=== PATIENT | female | born 1980 | race Hispanic/Latino ===

== ENCOUNTER 2020-10-25 08:15 | Emergency (ER) | payer OTHER ==
--- NOTE | 2020-10-25 08:35 | EDPHYS ---
Physician Documentation [facility] Name: Amy Boss Age: 40 yrs Sex: Female : 1980 Arrival Date: 10/25/2020 Time: 08:17 Bed 18 Private MD: Puma Corral H ED Physician Shaggy Nelson HPI: 10/25 08:30 This 40 yrs old Female presents to ER via Ambulatory with complaints of Insect rn Bite. 08:30 the patient presents with a swollen area of the left leg. Description: erythematous, rn swollen, tense. Onset: The symptoms/episode began/occurred 3 day(s) ago. Possible cause(s): unknown. Associated signs and symptoms: Pertinent positives: erythema, swelling, Pertinent negatives: fever. Modifying factors: the symptoms are alleviated by nothing, the symptoms are aggravated by touching. Severity of symptoms: At their worst the symptoms were mild, in the emergency department the symptoms are unchanged. The patient has not experienced similar symptoms in the past. Reports popped and drained small amount of white pus 2 days ago.. 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 - Family history:: not pertinent. - Social history:: Smoking status: unknown. - Hospitalizations: : No recent hospitalization is reported. ROS: 08:30 Constitutional: Negative for fever, chills, and weight loss, Skin: + redness and rn swelling left inner thigh Exam: 08:30 Constitutional: This is a well developed, well nourished patient who is awake, alert, rn and in no acute distress. MS/ Extremity: Pulses equal, no cyanosis. Neurovascular intact. + mild erythema and 3cm induration left proximal/inner thigh, no fluctuance. No streaking. Vital Signs: 08:25 BP 122 / 77; Pulse 89; Resp 16 S; Temp 98.0(O); Pulse Ox 99% on R/A; aa5 Procedures: 08:30 Ultrasound: Type: Bedside ultrasound performed by Dr. Nelson, + cobblestoning of rn epidermis, no pocket of fluid or evidence of abscess. , performed by the emergency department physician. MDM: 08:19 Patient medically screened. rn 08:30 Differential diagnosis: abscess, cellulitis, insect bite. Data reviewed: vital signs, rn nurses notes, radiologic studies, ultrasound, and as a result, I will discharge patient. Counseling: I had a detailed discussion with the patient and/or guardian regarding: the historical points, exam findings, and any diagnostic results supporting the discharge/admit diagnosis, radiology results, the need for outpatient follow up, to return to the emergency department if symptoms worsen or persist or if there are any questions or concerns that arise at home. Special discussion: I discussed with the patient/guardian in detail that at this point there is no indication for admission to the hospital. It is understood, however, that if the symptoms persist or worsen the patient needs to return immediately for re-evaluation. Administered Medications: No medications were administered Disposition: 10/25/20 08:34 Discharged to Home. Impression: Cellulitis of left lower limb. - Condition is Stable. - Discharge Instructions: Cellulitis, Adult. - Prescriptions for Clindamycin HCl 300 mg Oral Capsule - take 1 capsule by ORAL route every 6 hours for 10 days; 40 capsule. - Medication Reconciliation Form, Thank You Letter, Antibiotic Education, Prescription Opioid Use, Work release form form. - Follow up: Private Physician; When: As needed; Reason: Recheck today's complaints, Re-evaluation by your physician. - Problem is new. - Symptoms have improved. Signatures: Shaggy Nelson MD MD rn Calderon, Audri RN RN aa5 Eitan Madera RN RN jd3 Corrections: (The following items were deleted from the chart) 08:52 08:34 10/25/2020 08:34 Discharged to Home. Impression: Cellulitis of left lower limb. jd3 Condition is Stable. Forms are Medication Reconciliation Form, Thank You Letter, Antibiotic Education, Prescription Opioid Use. Follow up: Private Physician; When: As needed; Reason: Recheck today's complaints, Re-evaluation by your physician. Problem is new. Symptoms have improved. rn
--- NOTE | 2020-10-25 08:35 | ER ---
Nurse's Notes [facility] Name: Amy Boss Age: 40 yrs Sex: Female : 1980 Arrival Date: 10/25/2020 Time: 08:17 Bed 18 Private MD: Puma Corral H Diagnosis: Cellulitis of left lower limb Presentation: 10/25 08:18 Chief complaint: Patient states: "I thought I got an insect bite on my left thigh a few aa5 days ago and it got a pimple and it busted but now it's all red". 08:18 Coronavirus screen: Client denies travel out of the [place] in the last 14 days. At this aa5 time, the client does not indicate any symptoms associated with coronavirus-19. Ebola Screen: Patient negative for fever greater than or equal to 101.5 degrees Fahrenheit, and additional compatible Ebola Virus Disease symptoms. Risk Assessment: Do you want to hurt yourself or someone else? Patient reports no desire to harm self or others. Onset of symptoms was October 2020. 08:18 Acuity: LLUVIA 4 aa5 08:18 Method Of Arrival: Ambulatory aa5 08:25 Initial Sepsis Screen: Does the patient meet any 2 criteria? No. Patient's initial aa5 sepsis screen is negative. Does the patient have a suspected source of infection? No. Patient's initial sepsis screen is negative. Triage Assessment: 08:51 Bite description: bite sustained to medial aspect of left thigh by an unknown animal, jd3 animal information: vaccination(s) is not applicable. 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 - Family history:: not pertinent. - Social history:: Smoking status: unknown. - Hospitalizations: : No recent hospitalization is reported. Screenin:51 Abuse screen: Denies threats or abuse. Nutritional screening: No deficits noted. jd3 Tuberculosis screening: No symptoms or risk factors identified. Fall Risk Ambulatory Aid- None/Bed Rest/Nurse Assist (0 pts). Gait- Normal/Bed Rest/Wheelchair (0 pts) Mental Status- Oriented to own ability (0 pts). Total Ventura Fall Scale indicates No Risk (0-24 pts). Assessment: 08:49 General: Appears in no apparent distress. comfortable, Behavior is calm, cooperative, jd3 appropriate for age. Pain: Complains of pain in medial aspect of left thigh Quality of pain is described as tender. Neuro: Level of Consciousness is awake, alert, obeys commands, Oriented to person, place, time, situation. Cardiovascular: Denies chest pain, Capillary refill < 3 seconds Patient's skin is warm and dry. Respiratory: Airway is patent Respiratory effort is even, unlabored, Respiratory pattern is regular, symmetrical. GI: No signs and/or symptoms were reported involving the gastrointestinal system. : No signs and/or symptoms were reported regarding the genitourinary system. EENT: No signs and/or symptoms were reported regarding the EENT system. Derm: Skin is intact, Skin is dry, Skin is normal, Skin temperature is warm Wound noted medial aspect of left thigh Wound is dry, red, closed. about the size of a quarter. Musculoskeletal: Circulation, motion, and sensation intact. Range of motion: intact in all extremities. Vital Signs: 08:25 BP 122 / 77; Pulse 89; Resp 16 S; Temp 98.0(O); Pulse Ox 99% on R/A; aa5 ED Course: 08:17 Patient arrived in ED. ag5 08:17 Puma Corral DO is Private Physician. ag5 08:18 Arm band placed on Patient placed in an exam room, on a stretcher. aa5 08:19 Shaggy Nelson MD is Attending Physician. rn 08:23 Triage completed. aa5 08:43 Eitan Madera RN is Primary Nurse. jd3 08:51 No provider procedures requiring assistance completed. Patient did not have IV access jd3 during this emergency room visit. 08:52 Patient has correct armband on for positive identification. Placed in gown. Bed in low jd3 position. Call light in reach. Side rails up X 1. Pulse ox on. NIBP on. Administered Medications: No medications were administered Outcome: 08:34 Discharge ordered by . rn 08:52 Discharged to home ambulatory, with family. jd3 08:52 Condition: stable 08:52 Discharge instructions given to patient, Instructed on discharge instructions, follow up and referral plans. medication usage, Demonstrated understanding of instructions, follow-up care, medications, Prescriptions given X 1. 08:52 Patient left the ED. jd3 Signatures: Shaggy Nelson MD MD rn Calderon, Audri RN RN aa5 Eitan Madera RN RN jd3 Gloria Patel 5
[2020-10-25 08:56] VITALS: BP 122/77; TEMP 98; O2SAT 99
== END 2020-10-25 08:52 | disposition home or self-care (01) ==
LOC: ER 08:15
DX: L03.116 Cellulitis of left lower limb (principal)
CPT/HCPCS: 99283

== ENCOUNTER 2025-01-07 14:53 | Emergency (ER) | payer OTHER ==
[2025-01-07 15:33] LABS: Absolute Eosinophils 0.1 K/uL (0-0.5); Absolute Lymphocytes (CBC) 2.2 K/uL (0.7-4.9); Absolute Monocytes 0.6 K/uL (0.1-1.3); Absolute Neutrophil 4.9 K/uL (1.8-8.0); Basophils % 0.4 % (0-1.3); Eosinophils % 1.4 % (0-4.4); Hematocrit 38.3 % (36.0-45.0); Hemoglobin 12.8 g/dL (12.0-15.0); Lymphocytes % 28.1 % (15.3-44.8); MCH 27.8 pg (27.0-35.0); MCHC 33.4 g/dL (32.0-36.0); MCV 83.2 fL (80-100); Monocytes % 7.5 % (3.3-12.3); Neutrophils % 62.6 % (41.7-73.7); Nucleated Red Blood Cells % 0.1 % (0-0); Platelets 347 thou/uL (152-406); RBC Red Blood Cell Count 4.61 M/uL (3.86-4.86); Red Cell Distribution Width 14.3 % (12.1-15.2)
[2025-01-07 15:35] LABS: Specific Gravity > 1.030 (1.005-1.030); Sqamous Epithelial <5 /HPF (None Seen); Urine Bacteria <20 /HPF (<20); Urine Bilirubin 1+ (Negative); Urine Blood Negative (Negative); Urine Clarity Extremely Turbid (Clear); Urine Color Yellow (Yellow); Urine Crystals Unidentified Few /HPF (None Seen); Urine Culture Reflex Order NOT NEEDED; Urine Glucose NEGATIVE (Negative); Urine Ketones 3+ (Negative); Urine Microscopic Reflex YN ORDER UMIC; Urine Mucus 1+ /HPF (None Seen); Urine Nitrite NEGATIVE (Negative); Urine Protein TRACE (Negative); Urine Urobilinogen 1+ (Normal); Urine WBC <5 /HPF (<5); Urine WBC Clump Rare /HPF (None Seen)
[2025-01-07 15:49] LABS: Albumin 3.4 g/dL (3.4-5.0); Albumin/Globulin Ratio 0.7 (1.1-1.8); Anion Gap 7.3 mEq/L (5.0-15.0); Bilirubin Total 0.4 mg/dL (0.2-1.0); Globulin 4.6 g/dL (2.3-3.5); Potassium 3.3 mEq/L (3.5-5.1)
--- NOTE | 2025-01-07 16:43 | RAD REPORT ---
Pelvis Complete CLINICAL INDICATION: Female 44 years old ABD PAIN TECHNIQUE: Real-time ultrasonography of the pelvis was performed transabdominally. Color and spectral Doppler evaluation of the ovaries was performed. [id number]. The patient refused a transvaginal exam. COMPARISON: No prior exam. FINDINGS: UTERUS AND CERVIX: The uterus measures 7.2 x 3.2 x 4.2 cm (cervix to fundus x AP x transverse). The u terus is normal. No masses seen . Note that the endometrial stripe was not assessed. RIGHT OVARY: Not seen; no right adnexal mass. LEFT OVARY: Not seen; no left adnexal mass. FREE FLUID: No free fluid. IMPRESSION: 1. Limited exam as the patient refused a transvaginal exam. Endometrial stripe not assessed. 2. Neither ovary visualized.
--- NOTE | 2025-01-07 17:11 | RAD REPORT ---
EXAMINATION: Abdomen Pelvis W Contrast CLINICAL INDICATION: Female, 44 years old.lower abd pain TECHNIQUE: CT abdomen and pelvis was performed, after the administration of IV contrast, [facility]. Axial, sagittal and coronal reconstructions were obtained. One or more of the following dose reduction techniques were used: Automated exposure control, adjustment of the mA and/o r kV according to patient size, and/or iterative reconstruction. Unless otherwise specified, incidental findings do not require dedicated imaging follow-up. [id number]. COMPARISON: No prior exam. FINDINGS: LOWER CHEST: No acute process identified.No significant pericardial effusion. Mild circumferential th ickening of the distal esophagus which could reflect esophagitis. UPPER GI: No significant abnormality. LIVER: Hepatic steatosis, but otherwise unremarkable. GALLBLADDER/BILE DUCTS: Cholecystectomy? PANCREAS: No mass, ductal dilation, or regino-pancreatic fluid. SPLEEN: Unremarkable. ADRENALS: No adrenal masses. KIDNEYS AND URETERS: No hydronephrosis.No suspicious renal mass.Nonobstructing renal calculi. ABDOMINAL AORTA AND OTHER VESSELS: Normal caliber aorta and IVC. PERITONEUM: No abnormal free fluid. No free air. LYMPH NODES: No pathologic lymphadenopathy. ABDOMINAL WALL: Small fat containing umbilical hernia. SMALL BOWEL/COLON: Inflammatory changes at the mid sigmoid consistent with nonperforated sigmoid dive rticulosis.Normal appendix. URINARY BLADDER: Underdistended but grossly unremarkable. REPRODUCTIVE ORGANS: No pathologic process. MUSCULOSKELETAL: No acute or suspicious osseous abnormality. ADDITIONAL FINDINGS: None. IMPRESSION: Nonperforated sigmoid diverticulosis. No bowel obstruction.
[2025-01-07] MEDS ORDERED: CIPROFLOXACIN HCL 500 MG TAB ONE (18:53)
[2025-01-07] MEDS ORDERED: metroNIDAZOLE 500 MG TABLET ONE (18:53)
--- NOTE | 2025-01-07 19:03 | EDPHYS ---
Physician Documentation [facility] Name: Amy Boss Age: 44 yrs Sex: Female : 1980 Arrival Date: 01/07/2025 Time: 14:53 Bed 18 Private MD: ED Physician Shaggy Nelson HPI: 01/07 15:12 This 44 yrs old Female presents to ER via Ambulatory with complaints of rn Abdominal Swelling. 15:12 The patient presents with abdominal pain in the lower abdomen. Onset: The rn symptoms/episode began/occurred 5 day(s) ago. The symptoms do not radiate. Associated signs and symptoms: Pertinent negatives: nausea and vomiting, blood in stools, chest pain, constipation, diarrhea, fever, shortness of breath, vaginal discharge, vomiting. The symptoms are described as achy, crampy. Modifying factors: The symptoms are alleviated by nothing, the symptoms are aggravated by nothing. Severity of pain: At its worst the pain was moderate in the emergency department the pain has improved. The patient has not experienced similar symptoms in the past. The patient has been recently seen by a physician:. Patient reports lower abdominal pain for the last 5 days. No fever or chills or vomiting or diarrhea. No blood in stool. Patient seen by PCP and had a negative urinalysis. Still having pain so PCP sent here for further evaluation denies unintentional weight loss. No vaginal discharge. No urinary symptoms.. 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 Flu vaccine is not up to date. - Infectious Disease History:: Denies. - Social history:: Smoking status: Patient denies any tobacco usage or history of. - Family history:: not pertinent. - Hospitalizations: : No recent hospitalization is reported. ROS: 15:12 Constitutional: Negative for fever, chills, and weight loss, Cardiovascular: Negative rn for chest pain, palpitations, and edema, Respiratory: Negative for shortness of breath, cough, wheezing, and pleuritic chest pain, Abdomen/GI: Negative for nausea, vomiting, diarrhea, and constipation, Back: Negative for injury and pain, : Negative for injury, bleeding, discharge, and swelling, MS/Extremity: Negative for injury and deformity, Skin: Negative for injury, rash, and discoloration, Neuro: Negative for headache, weakness, numbness, tingling, and seizure, Exam: 15:12 Constitutional: This is a well developed, well nourished patient who is awake, alert, rn and in no acute distress. Cardiovascular: Regular rate and rhythm. No pulse deficits. Respiratory: No increased work of breathing, no retractions or nasal flaring. Abdomen/GI: Soft mild suprapubic tenderness. No rebound or guarding. No masses MS/ Extremity: Pulses equal, no cyanosis. Neuro: Awake and alert, GCS 15 Vital Signs: 15:06 BP 145 / 86; Pulse 87; Resp 17; Temp 97.7; Pulse Ox 99% on R/A; Weight 81.65 kg; Height ap3 5 ft. 0 in. ; Pain 5/10; 16:38 BP 144 / 89; Pulse 80; Resp 16; Pulse Ox 99% ; bp 18:13 BP 136 / 87; Pulse 96; Resp 16; Pulse Ox 95% ; bp 15:06 Body Mass Index 35.15 (81.65 kg, 152.4 cm) ap3 15:06 Pain Scale: Adult ap3 MDM: 14:58 Medical Screening Exam initiated rn 19:00 Differential diagnosis: appendicitis, diverticulitis, gastritis, gastroesophageal rn reflux disease, non-specific abd pain, Peptic Ulcer Disease, Perf. Duodenal Ulcer, Perf. Gastric Ulcer, Ureterolithiasis, urinary tract infection. Data reviewed: vital signs, nurses notes, lab test result(s), radiologic studies, CT scan, and as a result, I will discharge patient. 19:01 Counseling: I had a detailed discussion with the patient and/or guardian regarding the rn historical points, exam findings, and any diagnostic results supporting the discharge/admit diagnosis, lab results, radiology results, the need for outpatient follow up, to return to the emergency department if symptoms worsen or persist or if there are any questions or concerns that arise at home. Special discussion: Based on the patient's Hx, exam, and Dx evaluation, there is no indication for emergent surgery or inpatient Tx. It is understood by the patient/guardian that if the Sx's persist or worsen they need to return immediately for re-evaluation. I discussed with the patient/guardian in detail that at this point there is no indication for admission to the hospital. It is understood, however, that if the symptoms persist or worsen the patient needs to return immediately for re-evaluation. ED course: CT shows nonperforated diverticulitis. Will discharge home with antibiotics and pain medication with return precautions. I have personally reviewed all of the results, including but not limited to blood tests and imaging deemed necessary to safely discharge this patient at this time. All results given to and printed out for patient. I personally went over all the results with the patient and answered all questions. Patient will follow-up with PCP and or specialist as discussed. Return precautions given and understood.. 01/07 15:11 Order name: CBC with Diff; Complete Time: 15:57 rn 01/07 15:11 Order name: CMP; Complete Time: 15:57 rn 01/07 15:11 Order name: Lipase; Complete Time: 15:57 rn 01/07 15:11 Order name: Urinalysis w/ reflexes; Complete Time: 15:57 rn 01/07 15:11 Order name: CT Abd/Pelvis - IV Contrast Only; Complete Time: 17:47 rn 01/07 15:11 Order name: US Pelvis Complete; Complete Time: 16:46 rn 01/07 15:11 Order name: IV Saline Lock; Complete Time: 15:23 rn 01/07 15:11 Order name: Labs collected and sent; Complete Time: 15:23 rn Administered Medications: 18:56 Drug: Ciprofloxacin PO 500 mg PO once Route: PO; bp 18:56 Follow up: Response: No adverse reaction bp 18:56 Drug: metroNIDAZOLE PO 500 mg PO once Route: PO; bp 18:56 Follow up: Response: No adverse reaction bp Disposition Summary: 01/07/25 19:02 Discharge Ordered Notes: Location: Home rn Problem: new rn Symptoms: have improved rn Condition: Stable rn Diagnosis - Diverticulitis of large intestine without perforation or abscess without bleeding rn Followup: rn - With: Private Physician - When: As needed - Reason: Recheck today's complaints, Re-evaluation by your physician Discharge Instructions: - Discharge Summary Sheet rn - High-Fiber Eating Plan rn - Diverticulitis rn Forms: - Medication Reconciliation Form rn - Antibiotic alternative dispute resolution mediator - Prescription Opioid Use rn - Patient Portal Instructions rn - Leadership Thank You Letter rn Prescriptions: - ondansetron 4 mg Oral Tablet,disintegrating - take 1 tablet ORAL route every 8 hours As needed as needed for nausea and rn vomiting; 12 tablet; Refills: 0, Product Selection Permitted - Flagyl 500 mg Oral Tablet - take 1 tablet ORAL route every 8 hours for 10 days; 30 tablet; Refills: 0, rn Product Selection Permitted - Cipro 500 mg Oral tablet - take 1 tablet ORAL route every 12 hours for 10 days; 20 tablet; Refills: 0, rn Product Selection Permitted - Tramadol 50 mg Oral Tablet - take 1 tablet ORAL route every 8 hours as needed; 12 tablet; Refills: 0, rn Product Selection Permitted Signatures: Dispatcher [employer] EDMS Shaggy Nelson MD MD rn Peltier, Brian, RN Almaz Khan RN RN ap3 Corrections: (The following items were deleted from the chart) 15:12 15:12 CBC+H.LAB.BRZ ordered. EDMS EDMS 15:12 15:12 COMPREHENSIVE METABOLIC PANEL+C.LAB.BRZ ordered. EDMS EDMS 15:12 15:12 LIPASE+C.LAB.BRZ ordered. EDMS EDMS 15:12 15:12 Urinalysis+U.LAB.BRZ ordered. EDMS EDMS 15:12 15:12 Abdomen Pelvis W Con+CT.RAD.BRZ ordered. EDMS EDMS 15:12 15:12 Pelvis Complete+US.RAD.BRZ ordered. EDMS EDMS
--- NOTE | 2025-01-07 19:03 | ER ---
Nurse's Notes [facility] Name: Amy Boss Age: 44 yrs Sex: Female : 1980 Arrival Date: 01/07/2025 Time: 14:53 Bed 18 Private MD: Diagnosis: Diverticulitis of large intestine without perforation or abscess without bleeding Presentation: 01/07 15:06 Chief complaint: Patient states: she started having lower pelvic fullness that started ap3 Friday night. patient states she saw her PCP, who sent her here for further evaluation after her UTI screening was negative. patient reports her periods have become more irregular, and her last one was 1.5 weeks ago which was heavier than normal and slightly more painful. patient reports normal bowel and urine habits. patient denies any N/V. Coronavirus screen: At this time, the client does not indicate any symptoms associated with coronavirus-19. Ebola Screen: No symptoms or risks identified at this time. Initial Sepsis Screen: Does the patient meet any 2 criteria? No. Patient's initial sepsis screen is negative. Does the patient have a suspected source of infection? No. Patient's initial sepsis screen is negative. Risk Assessment: Do you want to hurt yourself or someone else? Patient reports no desire to harm self or others. Onset of symptoms was January 02, 2025. 15:06 Method Of Arrival: Ambulatory ap3 15:06 Acuity: LLUVIA 3 ap3 Triage Assessment: 15:10 General: Appears in no apparent distress. Behavior is calm, cooperative, appropriate ap3 for age. Pain: Complains of pain in pelvis Pain currently is 5 out of 10 on a pain scale. Pain began 01/02. Neuro: Level of Consciousness is awake, alert, obeys commands, Oriented to person, place, time, situation, Appropriate for age. Cardiovascular: Patient's skin is warm and dry. Respiratory: Airway is patent Respiratory effort is even, unlabored, Respiratory pattern is regular, symmetrical. GI: Reports lower abdominal pain. 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 Flu vaccine is not up to date. - Infectious Disease History:: Denies. - Social history:: Smoking status: Patient denies any tobacco usage or history of. - Family history:: not pertinent. - Hospitalizations: : No recent hospitalization is reported. Screenin:11 [facility] ED Fall Risk Assessment (Adult) History of falling in the last 3 months, ap3 including since admission No falls in past 3 months (0 pts) Confusion or Disorientation No (0 pts) Intoxicated or Sedated No (0 pts) Impaired Gait No (0 pts) Mobility Assist Device Used No (0 pt) Altered Elimination No (0 pt) Score/Fall Risk Level 0 - 2 = Low Risk Oriented to surroundings, Maintained a safe environment, Educated pt \T\ family on fall prevention, incl call for assistance when getting out of bed, Assessed \T\ reinforced patient's understanding of fall precautions, Hourly rounding (assess needs \T\ fall precautionary measures) done, Used ambulatory aids as needed (educated on \T\ assisted with). Abuse screen: Denies threats or abuse. Nutritional screening: No deficits noted. Tuberculosis screening: No symptoms or risk factors identified. Assessment: 15:15 General: Appears in no apparent distress. comfortable, Behavior is calm, cooperative, bp appropriate for age. Pain: Complains of pain in pelvis. 18:13 Reassessment: Patient appears in no apparent distress at this time. Patient is alert, bp oriented x 3, equal unlabored respirations, skin warm/dry/pink. 19:05 GI: Bowel sounds present X 4 quads. Abd is soft X 4 quads. bp Vital Signs: 15:06 BP 145 / 86; Pulse 87; Resp 17; Temp 97.7; Pulse Ox 99% on R/A; Weight 81.65 kg; Height ap3 5 ft. 0 in. ; Pain 5/10; 16:38 BP 144 / 89; Pulse 80; Resp 16; Pulse Ox 99% ; bp 18:13 BP 136 / 87; Pulse 96; Resp 16; Pulse Ox 95% ; bp 15:06 Body Mass Index 35.15 (81.65 kg, 152.4 cm) ap3 15:06 Pain Scale: Adult ap3 ED Course: 14:57 Patient arrived in ED. im 14:57 Shaggy Nelson MD is Attending Physician. rn 15:08 Deangelo Zamorano, RN is Primary Nurse. bp 15:09 Triage completed. ap3 15:12 Arm band placed on right wrist. ap3 15:12 Patient has correct armband on for positive identification. Bed in low position. Call ap3 light in reach. Pulse ox on. NIBP on. 15:12 No provider procedures requiring assistance completed. ap3 15:13 Radiology exam delayed due to lab results not completed at this time. (BUN/Creatinine) nj IV insertion attempt and/or patient not having appropriate IV at this time. 15:15 Provided Education on: NA. bp 15:23 Initial lab(s) drawn, by me, sent to lab. Urine collected: clean catch specimen, clear. bp Inserted saline lock: 20 gauge in right antecubital area, using aseptic technique. Blood collected. Flushed with 10 mL NS. 16:36 US Pelvis Complete In Process Unspecified. EDMS 17:02 CT Abd/Pelvis - IV Contrast Only In Process Unspecified. EDMS 19:04 IV discontinued, intact, bleeding controlled, No redness/swelling at site. Pressure bp dressing applied. Administered Medications: 18:56 Drug: Ciprofloxacin PO 500 mg PO once Route: PO; bp 18:56 Follow up: Response: No adverse reaction bp 18:56 Drug: metroNIDAZOLE PO 500 mg PO once Route: PO; bp 18:56 Follow up: Response: No adverse reaction bp Medication: 15:15 VIS not applicable for this client. bp Outcome: 19:02 Discharge ordered by . rn 19:04 Discharged to home ambulatory, bp 19:04 Condition: stable 19:04 Discharge instructions given to patient, Instructed on discharge instructions, follow up and referral plans. medication usage, Demonstrated understanding of instructions, follow-up care, medications, Prescriptions given X 2, 19:08 Patient left the ED. bp Signatures: Dispatcher [employer] EDMS Shaggy Nelson MD MD rn Jordan, Nathan nj Peltier, Brian, RN RN bp Almaz Omalley RN RN ap3 Eli Rasmussen
[2025-01-07 19:16] VITALS: TEMP 97.7
[2025-01-07 19:19] VITALS: BP 136/87; O2SAT 95
== END 2025-01-07 19:08 | disposition home or self-care (01) ==
LOC: ER 14:53
DX: K57.32 Diverticulitis of large intestine without perforation or abscess without bleeding (principal)
CPT/HCPCS: 85025; 81001; 36415; 83690; 80053; 74177; 76856; 99284; Q9967